=== PATIENT | female | born 1945 | race Caucasian/White ===

== ENCOUNTER 2022-03-03 12:24 | Emergency (ER) | payer OTHER, SELFPAY ==
[2022-03-03 12:34] VITALS: BP 196/91
[2022-03-03 12:35] VITALS: PULSE 86; O2SAT 97
[2022-03-03 12:38] VITALS: BP 189/91; PULSE 87; RESP 18; TEMP 36.4; O2SAT 97; BMI 22.3
[2022-03-03 13:00] VITALS: PULSE 78; O2SAT 96
--- NOTE | 2022-03-03 13:22 | DI.CT.S_ITS ---
PROCEDURE: CT HEAD/BRAIN WO CON INDICATIONS: fall, left zygoma bruising and swelling TECHNIQUE: Noncontrast 4.5 mm thick angled axial sections acquired from the foramen magnum to the vertex, with coronal and sagittal reformats. For radiation dose reduction, the following was used: automated exposure control, adjustment of mA and/or kV according to patient size. COMPARISON: None. FINDINGS: Image quality: Excellent. CSF spaces: Basal cisterns are patent. No extra-axial fluid collections. The ventricles are symmetric in size and shape. Brain: No intracranial bleeds or masses. There is cerebral volume loss for age, with resultant ventricular and sulcal prominence. There are periventricular and deep white matter chronic small vessel ischemic changes. There is intracranial internal carotid artery atherosclerosis. Skull and face: Calvarium and visualized facial bones appear intact, without suspicious lesions. Sinuses: Visualized sinuses and mastoids are clear. IMPRESSION: No acute intracranial abnormality. Dictated by: Oswaldo Obrien M.D. on 03/03/2022 at 13:57 Approved by: Oswaldo Obrien M.D. on 03/03/2022 at 13:58
--- NOTE | 2022-03-03 13:22 | DI.CT.S_ITS ---
PROCEDURE: CT FACIAL BONES WO CON INDICATIONS: fall, left face trauma TECHNIQUE: Noncontrast 2.5 mm thick axial images acquired from the mandible through the frontal sinuses, with coronal and sagittal reformatting. For radiation dose reduction, the following was used: automated exposure control, adjustment of mA and/or kV according to patient size. COMPARISON: None. FINDINGS: Image quality: Excellent. Bones and teeth: Orbital lucio are intact. Sinus lucio show no fracture or deformity. Nasal bones and septum are intact. Visualized portions of the mandible demonstrate no fractures or subluxation. Zygomatic arches are intact. Pterygoid plates are intact. Visualized portions of the skull base and auditory canals are intact. Sinuses: Paranasal sinuses are aerated, without fluid levels, mucosal thickening, or mucoceles. Mastoid air cells are aerated. Soft tissues: No edema, masses, or fluid collections. No enlarged lymph nodes. No soft tissue lacerations or debris. Vascular: Visualized vascular structures appear normal in the absence of contrast. Bony vascular foramina and canals are intact. IMPRESSION: No acute finding. Dictated by: Oswaldo Obrien M.D. on 03/03/2022 at 13:58 Approved by: Oswaldo Obrien M.D. on 03/03/2022 at 13:59
[2022-03-03 13:30] VITALS: PULSE 85; O2SAT 95
--- NOTE | 2022-03-03 13:38 | ED.FALL ---
HPI - Fall <TJ Lantigua - Last Filed: 03/03/22 15:15> General Chief Complaint: Fall Stated Complaint: tripped and fell on cheek Time Seen by Provider: 03/03/22 13:01 Source: patient Mode of arrival: Ambulatory History of Present Illness HPI Narrative: This is a pleasant 76-year-old without significant medical history who presents to the emergency department 3 hours after she tripped and fell on the boat forward onto her left cheek and left knee/maradiaga now with contusions and abrasions in those areas. Patient denies any loss of consciousness, lightheadedness, dizziness, nausea, vomiting, difficulty concentrating, sensitivity to light or, neck pain, endorses left knee pain and left maradiaga pain where she has a hematoma and some abrasions. She denies any pain with ambulation, denies any new weakness, sensation changes, balance problems, instability or changes to her trauma, denies TMJ pain, denies any vision changes or hearing changes but endorses cerumen impaction bilaterally. She states this is been a chronic problem for her but she does not have any balance problems, dizziness, ear fullness or other complaint. Related Data Previous Rx's Medication Instructions Recorded carbamide peroxide 6.5 % ear drops 2 drp EAR-BOTH DAILY PRN cerumen 03/03/22 (Debrox) impaction #15 mL Allergies Allergy/AdvReac Type Severity Reaction Status Date / Time ciprofloxacin Allergy Intermediate Rash Verified 03/03/22 13:05 nitrofurantoin Allergy Intermediate Rash Verified 03/03/22 12:38 hydrocodone AdvReac Vomiting Verified 03/03/22 12:38 ibuprofen AdvReac drug Verified 03/03/22 13:06 interaction Patient History <TJ Lantigua - Last Filed: 03/03/22 15:15> Social History Smoking Status: Never smoker Smoking Status: Never smoker Substance Use Type: does not use Exam <TJ Lantigua - Last Filed: 03/03/22 15:15> Narrative Exam Narrative: Independently reviewed vitals signs and nursing notes. General: Awake, alert, nontoxic, no cardiorespiratory distress Head/Neck: neck supple without tenderness over cervical spine, no tenderness over mastoids, no tenderness over sinuses or facial bones except for her left zygoma is tender to palpation with a firm hematoma present approximately 2 cm x 2 cm but soft enough to depress. Patient denies any exquisite tenderness, any pain over nasal bones, Ears: Bilateral ear canals with hard cerumen present, TMs are difficult to visualize but without erythema, landmarks are present with positive light reflex bilaterally Eyes: EOMI, conjunctiva normal, pupils are equal and reactive to light Nose: nares patent, no rhinorrhea Mouth/Throat: moist mucus membranes, posterior pharynx without erythema or lesion Cardio: Regular rate and rhythm, no peripheral edema Respiratory: respirations unlabored without wheezing, stridor, or rales. No retractions, hypoxia or tachypnea GI: Abdomen soft, nontender to palpation x4 quadrants, no guarding or rebound tenderness MSK: Moves all extremities, neurovascularly intact, range of motion without deficit, left knee with mild edema and ecchymosis with a few abrasions, left maradiaga with a larger hematoma but is soft, abrasions and no tenderness over the bone, full range of motion without any deficit, strength is equal bilaterally, no other trauma was visible or Skin: Normal capillary refill, no rash Neuro: Normal speech and cognition, normal gait Initial Vital Signs Initial Vital Signs: Vital Signs Blood Pressure 196/91 H 03/03/22 12:34 <Tai Dye DO - Last Filed: 03/03/22 15:18> Initial Vital Signs Initial Vital Signs: Vital Signs Blood Pressure 196/91 H 03/03/22 12:34 Course <REYNA LantiguaP - Last Filed: 03/03/22 15:15> Orders Ordered: ED Orders 03/03/22 13:22 CT facial bones wo con Stat CT head/brain wo con Stat Discontinued Medications Acetaminophen (Acetaminophen 325 Mg Tablet) 650 mg PO NOW ONE Stop: 03/03/22 13:23 Last Admin: 03/03/22 13:32 Dose: Not Given Documented By: EULA Bacitracin (Bacitracin Oint 0.9 Gm Pckt) 1 applic TOP NOW ONE Stop: 03/03/22 13:54 Last Admin: 03/03/22 14:20 Dose: 1 applic Documented By: EULA Docusate Sodium (Docusate 100 Mg Capsule) 100 mg PO NOW ONE Stop: 03/03/22 13:57 Last Admin: 03/03/22 14:20 Dose: 100 mg Documented By: EULA Vital Signs Vital signs: Vital Signs - 8 hr 03/03/22 12:38 03/03/22 12:34 03/03/22 12:35 Temperature 97.5 F L Pulse Rate 87 86 Respiratory Rate 18 Blood Pressure 189/91 H 196/91 H Pulse Oximetry 97 97 Oxygen Delivery Method Room Air 03/03/22 13:00 03/03/22 13:30 03/03/22 15:02 Temperature Pulse Rate 78 85 76 Respiratory Rate Blood Pressure Pulse Oximetry 96 95 98 Oxygen Delivery Method 03/03/22 15:02 Temperature Pulse Rate Respiratory Rate 18 Blood Pressure 151/68 H Pulse Oximetry Oxygen Delivery Method <Tai Dye DO - Last Filed: 03/03/22 15:18> Orders Ordered: ED Orders 03/03/22 13:22 CT facial bones wo con Stat CT head/brain wo con Stat Discontinued Medications Acetaminophen (Acetaminophen 325 Mg Tablet) 650 mg PO NOW ONE Stop: 03/03/22 13:23 Last Admin: 03/03/22 13:32 Dose: Not Given Documented By: EULA Bacitracin (Bacitracin Oint 0.9 Gm Pckt) 1 applic TOP NOW ONE Stop: 03/03/22 13:54 Last Admin: 03/03/22 14:20 Dose: 1 applic Documented By: EULA Docusate Sodium (Docusate 100 Mg Capsule) 100 mg PO NOW ONE Stop: 03/03/22 13:57 Last Admin: 03/03/22 14:20 Dose: 100 mg Documented By: EULA Vital Signs Vital signs: Vital Signs - 8 hr 03/03/22 12:38 03/03/22 12:34 03/03/22 12:35 Temperature 97.5 F L Pulse Rate 87 86 Respiratory Rate 18 Blood Pressure 189/91 H 196/91 H Pulse Oximetry 97 97 Oxygen Delivery Method Room Air 03/03/22 13:00 03/03/22 13:30 03/03/22 15:02 Temperature Pulse Rate 78 85 76 Respiratory Rate Blood Pressure Pulse Oximetry 96 95 98 Oxygen Delivery Method 03/03/22 15:02 Temperature Pulse Rate Respiratory Rate 18 Blood Pressure 151/68 H Pulse Oximetry Oxygen Delivery Method MDM - Fall <TJ Lantigua - Last Filed: 03/03/22 15:15> Imaging Data CT scan - head: Radiologist's Impression: PROCEDURE:? CT HEAD/BRAIN WO CON ? INDICATIONS:? fall, left zygoma bruising and swelling ? TECHNIQUE:? Noncontrast 4.5 mm thick angled axial sections acquired from the foramen magnum to the vertex, with coronal and sagittal reformats.? For radiation dose reduction, the following was used:? automated exposure control, adjustment of mA and/or kV according to patient size.? ? COMPARISON:? None. ? FINDINGS:? Image quality:? Excellent.? ? CSF spaces:? Basal cisterns are patent.? No extra-axial fluid collections.? The ventricles are symmetric in size and shape.? ? Brain:? No intracranial bleeds or masses.? There is cerebral volume loss for age, with resultant ventricular and sulcal prominence.? There are periventricular and deep white matter chronic small vessel ischemic changes.? There is intracranial internal carotid artery atherosclerosis.? ? Skull and face:? Calvarium and visualized facial bones appear intact, without suspicious lesions.? ? Sinuses:? Visualized sinuses and mastoids are clear.? ? IMPRESSION:? No acute intracranial abnormality. ? ? Dictated by: Oswaldo Obrien M.D. on 03/03/2022 at 13:57 ? ? Approved by: Oswaldo Obrien M.D. on 03/03/2022 at 13:58 ? CT face: Radiologist's Impression: PROCEDURE:? CT FACIAL BONES WO CON ? INDICATIONS:? fall, left face trauma ? TECHNIQUE:? Noncontrast 2.5 mm thick axial images acquired from the mandible through the frontal sinuses, with coronal and sagittal reformatting.? For radiation dose reduction, the following was used:? automated exposure control, adjustment of mA and/or kV according to patient size.? ? COMPARISON:? None. ? FINDINGS:? Image quality:? Excellent.? ? Bones and teeth:? Orbital lucio are intact.? Sinus lucio show no fracture or deformity.? Nasal bones and septum are intact.? Visualized portions of the mandible demonstrate no fractures or subluxation.? Zygomatic arches are intact.? Pterygoid plates are intact.? Visualized portions of the skull base and auditory canals are intact.? ? Sinuses:? Paranasal sinuses are aerated, without fluid levels, mucosal thickening, or mucoceles.? Mastoid air cells are aerated.? ? Soft tissues:? No edema, masses, or fluid collections.? No enlarged lymph nodes.? No soft tissue lacerations or debris.? ? Vascular:? Visualized vascular structures appear normal in the absence of contrast.? Bony vascular foramina and canals are intact.? ? IMPRESSION:? No acute finding. ? ? Dictated by: Oswaldo Obrien M.D. on 03/03/2022 at 13:58 ? ? Approved by: Oswaldo Obrien M.D. on 03/03/2022 at 13:59 ? MDM Narrative Medical decision making narrative: This is a pleasant 76-year-old female who was getting out of hurting E boat when she tripped and fell forward injuring the left side of her face, left knee and left maradiaga. She did not have any LOC, nausea vomiting, vision changes, headache, she is not on any anticoagulants, denies any dizziness, lightheadedness, weakness, sensation changes or other symptom. She is neurologically intact without any deficit. Discussed CT imaging due to the mechanism and large hematoma on her left cheek. Shared decision making and opted to CT head, brain, facial bones for any fracture or intracranial hemorrhages. Patient's wounds were cleansed with normal saline, covered with bacitracin and Band-Aids. #415 - Emergency Medicine: Utilization of CT for Minor Blunt Head Trauma (Adult) [x] Patient is 18 or older, presenting with minor blunt head trauma. Head CT (including cosigned orders) was ordered by an emergency sub acute care nurse for trauma because (select one or more): [SATISFIES MIPS PERFORMANCE] Reasons: [x] Patient is 65 or older [] Patient GCS < 15 [] Patient has focal neurologic deficit [] Patient has severe headache [] Patient is vomiting Patient does not have any hemotympanum, she does have bilateral cerumen impaction which was irrigated and removed by bedside RN with half and half Colace and warm water. Patient reports improved hearing afterwards, no tympanic rupture. Patient denies any headache, discussed concussive symptoms, patient denies any of these at this time but is aware that this is possible. She ambulates with a steady gait, did not have any nausea vomiting, neurologic changes, or weakness. Patient understands to follow-up with her primary care provider for recheck, she was given contact information for Dr. Thompson if she has ongoing cerumen impaction problems. She was prescribed Debrox and will pick this up prior to going back home. Patient is appropriate and amenable to discharge home. Vital signs are stable on repeat examination is unremarkable. Patient has been informed of results. Patient has been given strict return to ER precautions for any new or worsening symptoms. Patient understands to follow up closely with outpatient providers as instructed. Patient understands plan and agrees to discharge home. All questions and concerns answered at this time. Discharge Plan Departure Patient Disposition: Home Clinical Impression: Fall from standing Qualifiers: Encounter type: initial encounter Qualified Code(s): W19.XXXA - Unspecified fall, initial encounter Injury of face Qualifiers: Encounter type: initial encounter Qualified Code(s): S09.93XA - Unspecified injury of face, initial encounter Contusion Qualifiers: Encounter type: initial encounter Contusion area: lower leg Laterality: left Qualified Code(s): S80.12XA - Contusion of left lower leg, initial encounter Cerumen impaction Qualifiers: Laterality: bilateral Qualified Code(s): H61.23 - Impacted cerumen, bilateral Instructions: Closed Head Injury, DI for Facial Fracture Activity Restrictions/Additional Instructions: *You have been diagnosed with a fall with a hematoma and injury to your left cheek, scattered abrasions and other hematomas but no fractures, bleeding in your brain, cervical spine fracture or facial fracture. The soft tissue injury to your cheek should heal over the next 1-2 weeks. The bruising may be present for at least that long. Please ice this frequently today and for the next three days, keep your head elevated for decrease swelling as much as possible, you may take Tylenol 650 mg every 6 hours as needed for pain, ibuprofen or naproxen is okay as well as long as you have something in her stomach and it does not interact with any other medications. Please bulk picker Debrox from the pharmacy prior to going home. Use tramadol as needed for breakthrough pain. You can use Debrox to help soften the earwax and then get into the shower and irrigated out. It looks a lot better today, follow-up with Dr. Thompson if you have ongoing issues with your ear wax. I included information about facial fractures as the treatment is generally the same although you did not have any fractures visualized on CT today. *What to do: *Please continue to take your regular medications as directed. [ x] New medication prescriptions sent to your pharmacy: [ [facility]] [ ] New medication written as a paper prescription [ ] No new medications given *Please follow up with your primary care provider in 2-3 days, call for an appointment. Let them know you were seen in the Emergency Department and that we asked that you be seen for follow-up. We will electronically transmit a record of today's note if your PCP is in our system *If you do not have a primary care provider please contact [phone] to establish care with one of the [facility] primary care providers. *Return to Emergency Department if you should have any new, worsening or concerning symptoms, such as [fever greater than 101F, chills, worsening pain, persistent vomiting or other bothersome symptoms] Prescriptions: New Debrox 6.5 % drops 2 drp EAR-BOTH DAILY PRN (Reason: cerumen impaction) Qty: 15 0RF Referrals: Gabe Pressley ARNP [Primary Care Provider] - Chidi Thompson MD [Physician] - <Tai Dye, DO - Last Filed: 03/03/22 15:18> Cosign ED Attending Cosignature Attestation: Dr Dye Co-Sign Statement: I was available for consultation during this patient's emergency department visit. This chart is signed by myself for administrative purposes only. I did not have direct contact with this patient during this visit. They were seen independently by the APC.
[2022-03-03] MEDS: BACITRACIN OINT 0.9 GM PCKT 1 APPLIC TOP (14:20)
[2022-03-03] MEDS: DOCUSATE 100 MG CAPSULE PO (14:20)
[2022-03-03 15:02] VITALS: BP 151/68; PULSE 76; RESP 18; O2SAT 98
== END 2022-03-03 15:18 | disposition home or self-care (01) ==
PROVIDERS: Emergency Provider Nurse Practitioner Critical Care Medicine; PCP Nurse Practitioner
DX: S09.93XA Unspecified injury of face, initial encounter (principal); S80.12XA Contusion of left lower leg, initial encounter; H61.23 Impacted cerumen, bilateral; W19.XXXA Unspecified fall, initial encounter
CPT/HCPCS: 69209; 70450; 70486; 99284